=== PATIENT | female | born 1990 | race Two or more races ===

== ENCOUNTER 2022-05-01 10:28 | Emergency (ER) | payer MEDICAID ==
[~2022-05-01] VITALS: Ht 154.9 cm; Wt 68.0 kg
[2022-05-01 10:41] VITALS: BP 135/70
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
[2022-05-01] MEDS ORDERED: CEPH500C2 PO (11:16)
== END 2022-05-01 11:28 | disposition home or self-care (01) ==
LOC: ER 10:33
DX: L03.114 Cellulitis of left upper limb (principal); T63.441A Toxic effect of venom of bees, accidental (unintentional), initial encounter; Y92.89 Other specified places as the place of occurrence of the external cause

== ENCOUNTER 2022-05-08 15:16 | Emergency (ER) | payer MEDICAID ==
[~2022-05-08] VITALS: Ht 154.9 cm; Wt 68.0 kg
[~2022-05-08 15:16] MED LIST: CEPH500C2 PO
[2022-05-08 15:51] VITALS: BP 108/82
--- NOTE | 2022-05-08 16:21 | NUR ---
Patient discharged to home in stable condition. Written and verbal after care instructions given. Patient verbalizes understanding of instruction.
== END 2022-05-08 16:20 | disposition home or self-care (01) ==
LOC: ER 15:18
DX: Z48.00 Encounter for change or removal of nonsurgical wound dressing (principal); Z79.899 Other long term (current) drug therapy